=== PATIENT | male | born 1980 | race Caucasian/White ===

== ENCOUNTER 2023-08-13 06:34 | Emergency (ER) | payer OTHER, BC ==
[~2023-08-13] VITALS: Ht 182.9 cm; Wt 172.4 kg
[2023-08-13 07:24] VITALS: BP_SYST 123; PULSE 88; RESP 16; TEMP 97.8; O2SAT 99
[2023-08-13] MEDS: KETOROLAC TROMETHAMINE 30 MG VIAL IM ONE (07:55)
[2023-08-13] MEDS ORDERED: ACET-2634 PO (08:38)
[2023-08-13 10:59] VITALS: BP_SYST 123; PULSE 88; RESP 16; TEMP 97.8; O2SAT 99
== END 2023-08-13 11:00 | disposition home or self-care (01) ==
LOC: SED 06:34
DX: S32.010A Wedge compression fracture of first lumbar vertebra, initial encounter for closed fracture (principal); M51.36 Other intervertebral disc degeneration, lumbar region; Z79.899 Other long term (current) drug therapy; V89.2XXA Person injured in unspecified motor-vehicle accident, traffic, initial encounter; Y93.89 Activity, other specified; Y92.89 Other specified places as the place of occurrence of the external cause; Y99.8 Other external cause status
CPT/HCPCS: 72040; 72072; 72100; 72128; 72131; 99284